=== PATIENT | female | born 1990 | race Caucasian/White ===

== ENCOUNTER 2022-11-03 08:00 | Outpatient (CLI) | payer OTHER | END 2022-11-03 08:01 | disposition home or self-care (01) | LOC: CSHCT 08:00 | PROVIDERS: ATTEND Urology | DX: N32.81 Overactive bladder (principal); N31.9 Neuromuscular dysfunction of bladder, unspecified; R31.29 Other microscopic hematuria; K44.9 Diaphragmatic hernia without obstruction or gangrene | CPT/HCPCS: 74178 ==